=== PATIENT | male | born 1990 | race Two or more races ===

== ENCOUNTER 2019-07-01 20:23 | Emergency (ER) | payer MEDICARE, OTHER ==
[~2019-07-01] VITALS: Ht 190.5 cm; Wt 88.9 kg
[2019-07-01] MEDS: POTASSIUM CL. PREMIX PERIPHER. 50 ML IV SCH (01:30)
--- NOTE | 2019-07-01 21:00 | NUR ---
PT BIBRA FROM STREET FOR ALCOHOL INTOXICATION. STRONG SMELL OF ALCOHOL NOTED ON ARRIVAL. PT APPEARS DISHEVELED. PT OPENS EYES TO VOICE. VITAL SIGNS STABLE. RESPIRATIONS EVEN AND UNLABORED. NO ACUTE DISTRESS NOTED AT THIS TIME. WILL CONTINUE TO MONITOR.
[2019-07-01] MEDS ORDERED: LORAZEPAM INJ 2 MG/ML VIAL ONE (22:04)
[2019-07-01] MEDS ORDERED: diphenhydrAMINE HCL 50 MG/ML VIAL ONE (22:04)
[2019-07-01] MEDS ORDERED: HALOPERIDOL LACTATE INJ 5 MG/ML VIAL ONE (22:04)
--- NOTE | 2019-07-01 22:08 | NUR ---
PT BECOME PHYSICALLY AND VERBALLY AGGRESSIVE TOWARDS STAFF. CONSTANTLY NEEDING TO BE TOLD TO RETURN TO BED. THREATENING TO ATTACK STAFF. HOSPITAL SECURITY CALLED TO BEDSIDE. ER AWARE.
--- NOTE | 2019-07-01 22:16 | NUR ---
PHLEB AT BEDSIDE FOR LAB DRAW
[2019-07-01 22:20] LABS: BASOPHILS # (AUTO) 0.1 /CMM (0.0-0.2); BASOPHILS % (AUTO) 0.9 % (0.0-2.0); EOSINOPHILS % (AUTO) 3.4 % (0.0-6.0); HEMATOCRIT 44 % (39-51); HEMOGLOBIN 14.8 g/dL (13.5-17.5); LYMPHOCYTES # (AUTO) 4.2 /CMM (0.8-4.8); LYMPHOCYTES % (AUTO) 46.6 % (20.0-44.0); MEAN CORPUSCULAR HGB CONC 33 g/dl (31.0-36.0); MEAN CORPUSCULAR VOLUME 92 fL (80-96); MONOCYTES # (AUTO) 0.5 /CMM (0.1-1.30); MONOCYTES % (AUTO) 5.2 % (2.0-12.0); NEUTROPHILS # (AUTO) 3.9 /CMM (1.8-8.9); NEUTROPHILS % (AUTO) 43.9 % (43.0-81.0); PLATELET COUNT (AUTO) 421 /CMM (150-450); RED BLOOD CELL COUNT(AUTO) 4.81 MIL/uL (4.5-6.0)
[2019-07-01] MEDS ORDERED: HALOPERIDOL LACTATE INJ 5 MG/ML VIAL IM ONE (22:30)
[2019-07-01] MEDS ORDERED: LORAZEPAM INJ 2 MG/ML VIAL IM ONE (22:30)
[2019-07-01] MEDS ORDERED: diphenhydrAMINE HCL 50 MG/ML VIAL IM ONE (22:30)
[2019-07-01 22:36] LABS: ALBUMIN 3.5 g/dL (3.4-5.0); BILIRUBIN,DIRECT 0.1 mg/dL (0.0-0.2); BILIRUBIN,TOTAL 0.3 mg/dL (0.2-1.0); CALCIUM, SERUM 8.4 mg/dL (8.5-10.1); CREATININE 1.1 mg/dL (0.6-1.3); SALICYLATE 1.4 mg/dL (2.8-20.0); TOTAL PROTEIN, SERUM 8.7 g/dL (6.4-8.2)
--- NOTE | 2019-07-02 00:40 | NUR ---
IV LINE ESTABLISHED, G 18L FOREARM
--- NOTE | 2019-07-02 00:45 | NUR ---
URINE SPECIMEN COLLECTED AND SENT TO LAB.
[2019-07-02] MEDS ORDERED: POTASSIUM CL. PREMIX PERIPHER. 50 ML ONE ×4 (01:26→05:12)
--- NOTE | 2019-07-02 02:55 | NUR ---
PT RESTING IN BED. VITAL SIGNS STABLE. NO ACUTE DISTRESS NOTED AT THIS TIME. WILL CONTINUE TO MONITOR
[2019-07-02] MEDS: POTASSIUM CL. PREMIX PERIPHER. 50 ML IV SCH ×4 (03:11→05:26)
--- NOTE | 2019-07-02 12:30 | NUR ---
PT AWAKE, VERBALLY RESPONSIVE. NEW COLOSTOMY APPLIED. PROVIDED W/ MEAL TRAY.
--- NOTE | 2019-07-02 13:22 | NUR ---
Patient discharged to home in stable condition. Written and verbal after care instructions given. Patient verbalizes understanding of instruction.IV removed. Catheter intact and site benign. Pressure and 4x4 applied to site. No bleeding noted.
[2019-07-02 13:26] VITALS: BP 125/84
== END 2019-07-02 13:27 | disposition home or self-care (01) ==
LOC: ER 20:24
DX: F10.129 Alcohol abuse with intoxication, unspecified (principal); R45.6 Violent behavior; E87.6 Hypokalemia; Z88.6 Allergy status to analgesic agent; Y90.9 Presence of alcohol in blood, level not specified
CPT/HCPCS: 36415; 80048; 80076; 80305; 80307; 80329; 83735; 85025; 96365; 96366; 96372 ×2; 99283; G0480; J1200; J1630; J2060; J3480 ×4; J7040